=== PATIENT | female | born 1985 | race Caucasian/White ===

== ENCOUNTER 2024-07-12 09:10 | Outpatient (AMB) | payer BC, SELFPAY ==
--- NOTE | 2024-07-12 09:11 | AM.OFFWIN_ITS ---
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 She reports associated intermittent sharp in the left ear. Her symptoms have been ongoing for the past 6 days. No headache or constitutional symptoms. She has not taken any medication for her symptoms. [facility] Female Reproductive History Menstrual Date of last menstrual period: 07/11/24 Review of Systems Const Details: Const Denies chills, Denies fatigue, Denies fever(s), Denies headache(s) and Denies weakness ENT Reports as per HPI Resp Denies cough, Denies dyspnea, Denies wheezing and Denies other (shortness of breath) Cardio Denies chest pain, Denies lightheadedness, Denies dyspnea and Denies other (palpitations) Neuro Denies dizziness, Denies headache(s), Denies numbness, Denies tingling and Denies weakness Endo Denies fatigue Aller/Immun Denies wheezing Physical Exam Const Other: Const General: well developed; No acute distress Nutritional Appearance: well nourished Orientation/consciousness: patient oriented x3 HEENT Head is normocephalic Bilateral ear canal and TM are normal Nasal turbinates and oropharynx are pink and moist Sinuses are nontender with palpation No auricular or cervical lymphadenopathy Left TMJ tenderness to palpation, no overt injury or trauma Eyes General: appearance normal, both eyes and all related structures Pupils: Equal, round and reactive pupils present EOM: EOMs intact bilaterally Resp Effort & Inspection: normal respiratory effort Auscultation: clear to auscultation bilaterally Cardio Rate: regular rate Rhythm: regular rhythm Heart sounds: S1 normal heart sound present, S2 normal heart sound present, no gallops, no murmurs and no rubs Bruits: no abdominal aortic bruits and no carotid bruits Neuro General: patient oriented x3 and gait normal, no focal neuro deficit Cranial nerves: Yes Equal, round and reactive pupils present No CVA tenderness Psych Affect: normal affect Assessment & Plan Assessment & Plan (1) 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 Encouraged to avoid chewing gum or hard to chew food until healed Warm/cool compresses encouraged Follow-up with worsening or new symptoms Verbalized understanding and agreed with the plan Medications: New naproxen 500 mg PO BID PRN 20 tabs 0RF pain Coding Level of Care Code New Pt Level 3 (37026) Diagnoses TMJ inflammation M26.69
[2024-07-12 09:18] VITALS: BP 102/68; PULSE 74; RESP 16; TEMP 36.7; O2SAT 99; BMI 28.8
== END 2024-07-12 09:33 | disposition home or self-care (01) ==
PROVIDERS: Visit Provider Nurse Practitioner Family
DX: M26.69 Other specified disorders of temporomandibular joint (principal)

== ENCOUNTER → 2024-07-12 09:10 | Outpatient (BNVA) | payer BC, SELFPAY | DX: M26.69 Other specified disorders of temporomandibular joint (principal) ==

== ENCOUNTER → 2024-08-04 09:31 | Outpatient (AMB) | payer BC, SELFPAY ==
--- NOTE | 2024-08-04 09:38 | A.OFFPC_ITS ---
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: No Allergies No Known Allergies Allergy (Verified 07/12/24 09:22) Medication List - Last Reconciled 08/04/24 by Gita Rapp PA-C thyroid (pork) ([facility] Thyroid) 30 mg PO DAILY Tobacco use date assessed: 08/04/24 Dental Screening Dental Screen Date: 08/04/24 Did you have a dental visit in the last 12 months?: Yes Did you have a dental problem in the last 6 months where you did not have access to dental care?: No Was dental information given to patient?: Patient has dentist HPI [facility] HPI Details Patient is a 38-year-old female with a significant past medical history of Ijeoma's hypothyroidism, headaches, vitamin-D and vitamin B12 deficiency presenting today for a follow up. She states that she does feel tired a lot and struggles with her weight despite not eating much. She wants to see what her hormones are like. Endo: Overdue for TSH. She is on [facility] thyroid 30 mg daily. Mammo: Due for this. Senior Statistician: Sees [facility] [place]. 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 1. Little interest or pleasure in doing things: not at all 2. Feeling down, depressed, or hopeless: not at all 3. Trouble falling or staying asleep, or sleeping too much: not at all 4. Feeling tired or having little energy: several days 5. Poor appetite or overeating: not at all 6. Feeling bad about yourself - or that you are a failure or have let yourself or your family down: not at all 7. Trouble concentrating on things, such as reading the newspaper or watching television: not at all 8. Moving or speaking so slowly that other people could have noticed. Or the opposite - being so fidgety or restless that you have been moving around a lot more than usual: not at all 9. Thoughts that you would be better off or of hurting yourself in some way: not at all Total score: 1 Depression Screening Interpretation: Negative Depression Screening Done: Yes 96465 - PHQ-9 Billing: Yes Source: Developed by Drs. Enrique Lopez, Shu Hodge, Denzel Hercules and colleagues, with an educational mack from [employer]. Thrive Questionnaire I am a: Patient What is your living situation today?: I have a steady place to live Within the past 12 months, did the food you bought not last and you didn't have the money to get more?: Never true Within the past 12 months, did you worry whether your food would run out before you got money to buy more?: Never true Do you have trouble paying for medicines?: No Do you have trouble getting transportation to medical appointments?: No Do you have trouble paying your heating and electricity bill?: No Do you have trouble taking care of your child, family member or friend?: No Do you have trouble with day-to-day activities such as bathing, preparing meals, shopping, managing finances, etc.?: No Are you currently unemployed and looking for a job?: No Are you interested in more education?: No Please select the resources that you would like help with: None Currently or been in a relationship where the following occur: No concerns reported THRIVE Score: 0 AUDIT C Alcohol Use Questionnaire (AUDIT-C) 1. How often do you have a drink containing alcohol?: Monthly or less 2. How many drinks containing alcohol do you have on a typical day when you are drinking?: 1 or 2 3. How often do you have six or more drinks on one occasion?: Never Total Score: 1 JILL-7 AMB Questionnaire JILL-7 Feeling nervous, anxious, or on edge: 0 = Not at all Not being able to stop or control worryin = Not at all Worrying too much about different things: 0 = Not at all Trouble relaxin = Not at all Being so restless that it is hard to sit still: 0 = Not at all Becoming easily annoyed or irritable: 0 = Not at all Feeling afraid as if something awful might happen: 0 = Not at all Total JILL-7 score (0-4 normal; 5-9 mild; 10-14 moderate; 15-21 severe): 0 Source: Developed by Drs. Enrique Lopez, Shu Hodge, Denzel Hercules and colleagues, with an educational mack from [employer]. JILL-7 Assessment Billing JILL-7 Assessment Tool: JILL-7 Assessment 12027 Physical exam (Primary Care) Vital Signs: Last Vital Signs Pulse 70 08/04/24 09:40 Resp 12 08/04/24 09:40 BP 94/60 08/04/24 09:40 Pulse Ox 99 08/04/24 09:40 Oxygen Delivery Method Room Air 08/04/24 09:40 BMI result Body Mass Index 31.3 Tobacco/Smoking Status: Tobacco use Status Tobacco use date assessed 08/04/24 08/04/24 09:43 Patient Tobacco Use Status Never used Tobacco 08/04/24 09:43 e-Cigarette/Vaping Use Never Used 08/04/24 09:43 PHQ-9: PHQ-9 Score PHQ-9: Total score 1 08/04/24 09:43 Depression Screening Interpretation: Negative Currently or been in a relationship where the following occur: No concerns reported Const Orientation/consciousness: patient oriented x3 HENMT Ears: hearing grossly normal bilaterally Neck Thyroid: Thyroid normal Lymphatic: no lymphadenopathy noted Resp Auscultation: clear to auscultation bilaterally Cardio Rate: regular rate Rhythm: regular rhythm Heart sounds: S1 normal heart sound present and S2 normal heart sound present GI Inspection: Yes normal to inspection Palpation (GI): Soft to palpation and Other GI palpation findings present (nontender, no cva tenderness) Auscultation: normoactive bowel sounds Rectal Exam - Female: deferred Skin General skin exam: no rashes or lesions noted Neuro General: patient oriented x3, gait normal and no focal motor deficits Coding Level of Care Code Est Pt Level 4 (83056) Complex EM visit Add On G2211 Diagnoses Ijeoma's thyroiditis E06.3 Fatigue, unspecified type R53.83 Fatigue type: unspecified Vitamin D deficiency E55.9 Additional Codes JILL-7 Assessment Billing - JILL-7 Assessment Tool: JILL-7 Assessment 08469 ([id number]) Assessment & Plan Assessment & Plan (1) Ijeoma's thyroiditis: Code(s): E06.3 - Autoimmune thyroiditis Category: Medical Plan: TSH ordered. Continue thyroid medicine. (2) Fatigue: Code(s): R53.83 - Other fatigue Category: Medical Qualifiers: Fatigue type: unspecified Qualified Code(s): R53.83 - Other fatigue Plan: Labs ordered. We will follow up pending test results (3) Vitamin D deficiency: Code(s): E55.9 - Vitamin D deficiency, unspecified Category: Medical Plan: Not currently on a supplement. We will check. Orders: Orders Comprehensive Hamer. Panel Fast Today E06.3 - Autoimmune thyroiditis, R53.83 - Other fatigue Magnesium Today E06.3 - Autoimmune thyroiditis, R53.83 - Other fatigue Lutenizing Hormone Today E06.3 - Autoimmune thyroiditis, R53.83 - Other fatigue Estrad Free (Tot Ultra + Free) Today E06.3 - Autoimmune thyroiditis, R53.83 - Other fatigue Testosterone, Free/Total Today E06.3 - Autoimmune thyroiditis, R53.83 - Other fatigue TSH reflex Free T4 Today E06.3 - Autoimmune thyroiditis, R53.83 - Other fatigue Lipid Panel Today E06.3 - Autoimmune thyroiditis, R53.83 - Other fatigue Complete Blood Count Auto Diff Today E06.3 - Autoimmune thyroiditis, R53.83 - Other fatigue Vitamin B12 and Folate Today E06.3 - Autoimmune thyroiditis, R53.83 - Other fatigue Ferritin Today E06.3 - Autoimmune thyroiditis, R53.83 - Other fatigue IRON PROFILE Today E06.3 - Autoimmune thyroiditis, R53.83 - Other fatigue MM screening mammo BI Today Z12.31 - Encounter for screening mammogram for malignant neoplasm of breast Vitamin D 1,25 dihydroxy Today E06.3 - Autoimmune thyroiditis, E55.9 - Vitamin D deficiency, unspecified, R53.83 - Other fatigue
[2024-08-04 09:40] VITALS: BP 94/60; PULSE 70; RESP 12; O2SAT 99; BMI 31.3
== END ==
PROVIDERS: Visit Provider Physician Assistant
DX: E06.3 Autoimmune thyroiditis (principal); R53.83 Other fatigue; E55.9 Vitamin D deficiency, unspecified

== ENCOUNTER → 2024-08-04 09:31 | Outpatient (BNVA) | payer BC, SELFPAY | PROVIDERS: Visit Provider Physician Assistant | DX: E06.3 Autoimmune thyroiditis (principal); R53.83 Other fatigue; E55.9 Vitamin D deficiency, unspecified; Z79.899 Other long term (current) drug therapy | CPT/HCPCS: 96127 ==

== ENCOUNTER 2024-08-11 07:41 | Outpatient (REF) | payer BC, SELFPAY ==
[2024-08-11 11:00] LABS: MANUAL DIFF FLAG NO
[2024-08-11 11:11] LABS: Basophils Absolute Auto 0.1 X10*3/uL (0.0-0.2); Basophils Percent Auto 0.9 % (0-2); Eosinophils Absolute Auto 0.2 X10*3/uL (0.0-0.4); Eosinophils Percent Auto 2.8 % (0-4); Hematocrit 37.9 % (37.0-47.0); Hemoglobin 13.7 g/dl (12.0-16.0); Imm Gran Abs Auto 0.02 X10*3/uL (0.00-0.03); Imm Gran Pct Auto 0.3 % (0.0-0.4); Lymphocytes Absolute Auto 1.5 X10*3/uL (1.2-4.9); Lymphocytes Percent Auto 22.5 % (20-40); Mean Corpuscular HGB Conc 36.1 g/dl (31.0-35.0); Mean Corpuscular Hemoglobin 32.9 pg (27.0-33.0); Mean Corpuscular Volume 91.1 fL (80.0-98.0); Mean Platelet Volume 12.5 fL (9.4-12.3); Monocytes Absolute Auto 0.6 X10*3/uL (0.1-1.2); Monocytes Percent Auto 8.2 % (2-11); Neutrophils Absolute Auto 4.4 x10*3/uL (2.0-8.3); Neutrophils Percent Auto 65.3 % (45-73); Platelet Count 236 X10*3/uL (160-400); Red Blood Count 4.16 X10*6/uL (4.20-5.50); Red Cell Distribution Width 11.9 % (11.0-16.0); White Blood Count 6.8 X10*3/uL (4.8-10.8)
[2024-08-11 11:44] LABS: Alanine Aminotransferase 14 U/L (0-31); Albumin Level 4.1 g/dL (3.5-5.0); Alkaline Phosphatase 52 U/L (39-117); Anion Gap 10 (12-20); Aspartate Amino Transferase 17 U/L (5-31); Bilirubin Total 0.8 mg/dL (0.0-1.0); Blood Urea Nitrogen 14 mg/dL (9-16); Carbon Dioxide 24 mmol/L (22-29); Chloride 105 mmol/L (96-108); Cholesterol 185 mg/dL (<200); Estimated Glomerular Filt Rate > 60; Ferritin 47 ng/mL (10-250); Glucose Fasting 95 mg/dL (60-99); HDL Cholesterol 67 mg/dL (>40); Iron 83 mcg/dL (30-160); LDL Cholesterol Calculated 100 mg/dL (<100); Magnesium 2.1 mg/dL (1.6-2.6); Percent Iron Saturation 30 % (15-50); Sodium 135 mmol/L (135-145); TSH reflex Free T4 1.74 uIU/mL (0.32-4.0); Total Iron Binding Capacity 276 mcg/dL (228-428); Total Protein 6.9 g/dL (6.5-8.0); Triglycerides 93 mg/dL (<150); Unsaturated Iron Binding 193 ug/dL
[2024-08-11 12:13] LABS: Folate 11.1 ng/mL (> or = 4.0); Vitamin B12 473 pg/mL (200-900)
[2024-08-12 06:54] LABS: Lutenizing Hormone 8.3 mIU/mL
[2024-08-20 05:33] LABS: VITAMIN D (1,25 OH) D3 48 pg/mL; Vit D (1,25-Dihydroxy) Total 48 pg/mL (18-72); Vitamin D (1,25 OH) D2 <8 pg/mL
[2024-08-20 22:13] LABS: Testosterone, Free 1.9 pg/mL (0.1-6.4); Testosterone, Total 18 ng/dL (2-45)
[2024-08-25 06:29] LABS: Estradiol Free 0.84 pg/mL; Estradiol, Ultrasensitive 45 pg/mL
== END 2024-08-11 07:42 | disposition home or self-care (01) ==
LOC: HO.WFDLDS 07:41
PROVIDERS: Visit Provider Physician Assistant
DX: E06.3 Autoimmune thyroiditis (principal); R53.83 Other fatigue; E55.9 Vitamin D deficiency, unspecified
CPT/HCPCS: 36415; 80053; 80061; 82607; 82652; 82670; 82681; 82728; 82746; 83002; 83540; 83735; 84402; 84403; 84443; 85025